=== PATIENT | male | born 1965 | race Two or more races ===

== ENCOUNTER 2023-02-19 11:39 | Emergency (ER) | payer OTHER ==
[~2023-02-19] VITALS: Ht 170.2 cm; Wt 96.6 kg
[2023-02-19] MEDS ORDERED: ST. JOSEPH ASPI81 M2 (12:33)
[2023-02-19] MEDS ORDERED: BISOPROLOL FUMAR5 MG (12:34)
[2023-02-19] MEDS ORDERED: ATORVASTATIN CA10 MG (12:34)
[2023-02-19] MEDS ORDERED: LISINOPRIL10 MG (12:34)
[2023-02-19] MEDS ORDERED: TAMSULOSIN HCL0.4 MG (12:34)
[2023-02-19 13:46] LABS: HEMATOCRIT 46.1 % (39.0-48.0); HEMOGLOBIN 15.5 g/dL (13-16.00); MEAN CELL VOLUME 93.2 fL (80.0-100.00); MEAN CORPUSCULAR HEMOGLOBIN 31.3 pg (27.00-32.0); MEAN CORPUSCULAR HGB CONC 33.6 g/dl (32.0-36.0); PLATELET COUNT 170 K/uL (150-450); RED BLOOD COUNT 4.94 M/uL (4.00-6.00); RED CELL DISTRIBUTION WIDTH 12.9 % (11.5-14.5)
[2023-02-19 14:23] LABS: ALBUMIN 3.4 gm/dL (3.4-5.0); BILIRUBIN TOTAL 1.16 mg/dL (0.3-1.2); CALCIUM 8.9 mg/dL (8.5-10.1); CREATININE SERUM 0.98 mg/dL (0.70-1.30); GFR 79.41; GLOBULINA 3.9 G/DL (2.4-3.5); POTASSIUM 4.01 mEq/L (3.5-5.1); TOTAL PROTEIN 7.3 gm/dL (6.4-8.2)
[2023-02-19] MEDS ORDERED: TUSNEL LIQUID178 ML PO (15:35)
== END 2023-02-19 15:45 | disposition home or self-care (01) ==
LOC: ER 11:39
PROVIDERS: General Practice
DX: R05.9 Cough, unspecified (principal); Z20.822 Contact with and (suspected) exposure to COVID-19